=== PATIENT | male | born 1985 | race Caucasian/White ===

== ENCOUNTER 2024-08-04 05:55 | Emergency (ER) | payer MEDICAID, SELFPAY ==
--- NOTE | 2024-08-04 | ECG_ITS ---
Test Reason : diaphoretic/low hr Blood Pressure : / mmHG Vent. Rate : 047 BPM Atrial Rate : 047 BPM P-R Int : 148 ms QRS Dur : 100 ms QT Int : 400 ms P-R-T Axes : 015 066 062 degrees QTc Int : 354 ms Sinus bradycardia Otherwise normal ECG No previous ECGs available Referred By: Generic ED Physician Electronically Signed By:Tony Manning
--- NOTE | ~2024-08-04 | CT_ITS ---
EXAMINATION: CT HEAD WITHOUT CONTRAST CLINICAL INFORMATION: Seizure COMPARISON: None available. TECHNIQUE: Contiguous axial imaging was performed from the skull base to vertex without intravenous administration of contrast. This CT examination was performed using dose optimization techniques as appropriate, variously including the following: *Automated exposure control *Adjustment of mA and/or kV according to patient size (this includes techniques or standardized protocols for targeted exams where dose is matched to indication/reason for exam; i.e. extremities or head) *Use of iterative reconstruction technique DLP: 745 mGy-cm FINDINGS: No intra or extra-axial fluid collection or hemorrhage, mass or mass effect. Calvarium is intact. CT/CT head/brain wo IV con IMPRESSION: No acute intracranial pathology. Electronically signed by: Jcarlos Chau MD 08/04/2024 12:26 PM EDT
[2024-08-04 06:00] VITALS: BP 110/67; BP 112/76; PULSE 80; PULSE 90; RESP 29; TEMP 36.4; O2SAT 90; BMI 29.3
[2024-08-04 06:11] VITALS: BP 110/67; PULSE 85; RESP 24; TEMP 36.6; O2SAT 92
[2024-08-04 07:18] VITALS: BP 109/66; PULSE 54; RESP 21; O2SAT 96
--- NOTE | 2024-08-04 07:25 | PC.NURSE ---
Upon first contact with patient, pt woke up on his own to RN's presence. Pt has no recollection of events. Does report hx seizures and he has been off medications for over 6 months now. Pt calm, cooperative with care. Labs drawn/sent, VS updated.
[2024-08-04 07:39] LABS: MANUAL DIFF FLAG NO
[2024-08-04 07:42] LABS: Basophils Percent Auto 0.2 % (0-2); Eosinophils Percent Auto 0.2 % (0-4); Hematocrit 44.7 % (42.0-52.0); Hemoglobin 15.7 g/dl (14.0-18.0); Imm Gran Pct Auto 0.7 % (0.0-0.4); Lymphocytes Absolute Auto 1.3 X10*3/uL (1.2-4.9); Lymphocytes Percent Auto 9.4 % (20-40); Mean Corpuscular HGB Conc 35.1 g/dl (31.0-36.0); Mean Corpuscular Hemoglobin 30.6 pg (27.0-33.0); Mean Corpuscular Volume 87.1 fL (80.0-98.0); Mean Platelet Volume 11.1 fL (9.4-12.4); Monocytes Absolute Auto 0.7 X10*3/uL (0.1-1.2); Monocytes Percent Auto 5.4 % (2-11); Neutrophils Absolute Auto 11.4 x10*3/uL (2.0-8.3); Neutrophils Percent Auto 84.1 % (45-73); Platelet Count 201 X10*3/uL (160-400); Red Blood Count 5.13 X10*6/uL (4.60-5.80); Red Cell Distribution Width 12.5 % (11.0-16.0); White Blood Count 13.6 X10*3/uL (4.8-10.8)
--- NOTE | 2024-08-04 07:45 | ED_ITS ---
HPI - Seizure General Chief Complaint: Seizure Stated Complaint: ?seizure Time Seen by Provider: 08/04/24 07:32 Source: patient Mode of arrival: EMS History of Present Illness HPI Narrative: THIS IS A 38 YEARS OLD THE PATIENT WITH A HISTORY OF EPILEPSY NO COMPLIANT WITH HIS SEIZURE MEDICATION PRESENTED TO THE EMERGENCY DEPARTMENT AFTER A SEIZURE. HE STATES THAT HE HAS NOT TAKEN HIS SEIZURE MEDICATION FOR ABOUT 6 MONTHS HE TELLS ME THAT HE IS ON VALPROIC ACID ZONEGRAM. HE STATES THAT HE HE WAS WALKING HOME AND AT THE SEIZURE. complaint: seizure Onset (ago): hour(s) (2) Witnessed: No Trauma: No Seizure History: Yes Place: Outdoors Possible Precipitating Event: other (NONCOMPLIANCE WITH THE MEDICATION) Associated symptoms: denies other symptoms Treatments prior to arrival: none Related Data Previous Rx's ?Medication ?Instructions ?Recorded divalproex 500 mg tablet,delayed 500 mg PO BID #60 tabs 08/04/24 release (Depakote) zonisamide 100 mg capsule 100 mg PO BID #60 caps 08/04/24 (Zonegran) Allergies Allergy/AdvReac Type Severity Reaction Status Date / Time No Known Allergies Allergy Verified 08/04/24 06:12 Review of Systems 2 Eyes: Eyes: Reports no additional eye complaints Cardiovascular: Cardiovascular: Reports no additional cardiovascular complaints Gastrointestinal: Gastrointestinal: Reports no additional gastrointestinal complaints [facility] Past Medical History [facility] Narrative: EPILEPSY, HE DENIES ANY HISTORY OF ALCOHOL ABUSE HE DENIES ANY HISTORY OF DRUG ABUSE HE DOES USE CANNABINOIDS Social History Social History Smoked in Last 30 Days: Yes Substance Use Type: Marijuana Advance Directives: No Advance Directives Information Provided: Yes Do you have a plan to hurt others: No Plan Physical Exam 2 Vital Signs: Vital Signs: Last Vital Signs Temp 97.9 F 08/04/24 06:11 Pulse 57 08/04/24 09:27 Resp 16 08/04/24 09:27 BP 106/62 08/04/24 09:27 Pulse Ox 95 08/04/24 09:27 O2 Del Method Room Air 08/04/24 09:27 BMI result Body Mass Index 29.3 HE LOOKS WELL IS NOT TOXIC-APPEARING HE APPEARED COMFORTABLE IN THE STRETCHER Const: General: cooperative, comfortable and no acute distress O rientation/consciousness: patient oriented x3 HEENT: Other: HE HAS A SMALL ABRASION IN THE RIGHT SIDE OF THE TONGUE Head: Yes normal to inspection General nose exam: Normal external nose present Teeth and gingiva: dentition normal Neck: Neck: Yes normal visual inspection and Yes full ROM Chest: Chest palpation & inspection: normal inspection of the chest Resp: Effort & Inspection: normal respiratory effort Auscultation: clear to auscultation bilaterally Cardio: Jugular venous distension: no JVD Rate: regular rate Rhythm: r egular rhythm GI: Inspection: Yes normal to inspection Palpation (GI): Soft to palpation Skin: General skin exam: no rashes or lesions noted and elasticity normal L esions: no lesions Rashes: no rashes Neuro: General: patient oriented x3 Cranial nerves: Yes CN's II-XII intact bilaterally Course Reevaluation(s) Reevaluation #1: STABLE CLINICALLY,SEIZURE FREE Time: 10:59 Reevaluation #2: Patient remained stable he was observed in the emergency room for a 6 hour seizure free I refilled his medication I gave him the number of the neurology to follow-up with, patient is comfortable with the plan of care Time: 12:35 Medications Administered Discontinued Medications Generic Name Dose Route Start Last Admin Trade Name Freq PRN Reason Stop Dose Admin Sodium Chloride 1,000 mls @ 999 mls/hr 08/04/24 07:45 08/04/24 09:29 Ns IVCONT 08/04/24 08:45 Infused .Q1H1M IAN Infusion Valproic Acid 1,000 mg/ 60 mls @ 60 mls/hr 08/04/24 07:42 08/04/24 09:24 Dextrose IV 08/04/24 08:41 Infused ONCE ONE Infusion Lorazepam 1 mg 08/04/24 07:37 08/04/24 08:08 Lorazepam 1 Mg Tablet PO 08/04/24 07:38 1 mg ONCE ONE Administration Zonisamide 100 mg 08/04/24 07:43 08/04/24 09:49 Zonisamide 100 Mg Capsule PO 08/04/24 07:44 100 mg ONCE ONE Administration Medical Decision Making Medical Decision Making MDM Narrative: PATIENT PRESENTED AFTER GENERALIZED TONIC-CLONIC SEIZURE MOST LIKELY SECONDARY TO NONCOMPLIANCE. HE IS NOW AWAKE AND ALERT WE WILL CHECK BASELINE BLOOD WORK WE WILL LOAD HIM WITH THE VALPROIC ACID Differential Diagnosis Differential Diagnoses: The differential diagnosis associated with the presentation includes SEIZURE/SYNCOPE Lab Data [facility] Lab Attestation statement: I reviewed the patient's lab results. 08/04/24 07:22 08/04/24 07:22 Labs: Lab Results 08/04/24 08/04/24 Range/Units 07:22 10:44 WBC 13.6 H (4.8-10.8) X10*3/uL RBC 5.13 (4.60-5.80) X10*6/uL Hgb 15.7 (14.0-18.0) g/dl Hct 44.7 (42.0-52.0) % MCV 87.1 (80.0-98.0) fL MCH 30.6 (27.0-33.0) pg MCHC 35.1 (31.0-36.0) g/dl RDW 12.5 (11.0-16.0) % Plt Count 201 (160-400) X10*3/uL MPV 11.1 (9.4-12.4) fL Immature Gran % (Auto) 0.7 H (0.0-0.4) % Neut % (Auto) 84.1 H (45-73) % Lymph % (Auto) 9.4 L (20-40) % [place] % (Auto) 5.4 (2-11) % Eos % (Auto) 0.2 (0-4) % Baso % (Auto) 0.2 (0-2) % Lymph # (Auto) 1.3 (1.2-4.9) X10*3/uL [place] # (Auto) 0.7 (0.1-1.2) X10*3/uL Eos # (Auto) 0.0 (0.0-0.4) X10*3/uL Baso # (Auto) 0.0 (0.0-0.2) X10*3/uL Abs Immat Gran (auto) 0.10 H (0.00-0.03) X10*3/uL Absolute Neuts (auto) 11.4 H (2.0-8.3) x10*3/uL Absolute Nucleated RBC 0.000 (0.0-0.012) X10*3/uL Nucleated RBC % (auto) 0.0 (0.0-0.2) /100WBC Sodium 142 (135-145) mmol/L Potassium 4.1 (3.3-5.1) mmol/L Chloride 112 H (96-108) mmol/L Carbon Dioxide 22 (22-29) mmol/L Anion Gap 12 (12-20) BUN 11 (9-16) mg/dL Creatinine 1.02 (0.5-1.4) mg/dL Estim Creat Clear Calc 111.0 Estimated GFR > 60 Random Glucose 91 (60-115) mg/dL Calcium 9.5 (8.4-10.2) mg/dL Total Bilirubin 0.3 (0.0-1.0) mg/dL AST 26 (5-37) U/L ALT 33 (0-40) U/L Alkaline Phosphatase 70 (39-117) U/L Troponin I High Sens 6.8 (<3.5-35.0) ng/L Total Protein 6.8 (6.5-8.0) g/dL Albumin 4.2 (3.5-5.0) g/dL Urine Opiates Screen Not Detected (Not Detect) Ur Buprenorphine Scrn Not Detected (Not Detect) ng/mL Ur Oxycodone Screen Not Detected (Not Detect) ng/mL Urine Methadone Screen Not Detected (Not Detect) ng/mL Urine Fentanyl Screen Not Detected (Not Detect) Ur Barbiturates Screen Not Detected (Not Detect) Ur Phencyclidine Scrn Not Detected (Not Detect) Ur Amphetamines Screen Not Detected (Not Detect) U Benzodiazepines Scrn Not Detected (Not Detect) Urine Cocaine Screen Not Detected (Not Detect) U Marijuana (THC) Screen POSITIVE H (Not Detect) Independent Interpretation I performed an independent interpretation of an: EKG and CT Scan Interpretation: NORMAL SINUS RHYTHM RATE [address]-T CHANGES NO ISCHEMIA Discharge Plan Discharge Clinical Impression: Epileptic seizure Patient Disposition: Home, Self-Care Instructions: Epilepsy (DC) Additional Instructions: DO NOT DRIVE OR OPERATE MACHINE FOR ABOUT 6 MONTHS Prescriptions: New divalproex [Depakote] 500 mg tablet,delayed release (DR/EC) 500 mg PO BID Qty: 60 0RF zonisamide [Zonegran] 100 mg capsule 100 mg PO BID Qty: 60 0RF Referrals: Ivan Sierra MD [Physician] - 08/10/24 Print Language: Nepali
[2024-08-04 07:59] LABS: Alanine Aminotransferase 33 U/L (0-40); Albumin Level 4.2 g/dL (3.5-5.0); Alkaline Phosphatase 70 U/L (39-117); Anion Gap 12 (12-20); Aspartate Amino Transferase 26 U/L (5-37); Bilirubin Total 0.3 mg/dL (0.0-1.0); Blood Urea Nitrogen 11 mg/dL (9-16); Calcium 9.5 mg/dL (8.4-10.2); Carbon Dioxide 22 mmol/L (22-29); Chloride 112 mmol/L (96-108); Estimated Glomerular Filt Rate > 60; Glucose Random 91 mg/dL (60-115); Potassium 4.1 mmol/L (3.3-5.1); Sodium 142 mmol/L (135-145); Total Protein 6.8 g/dL (6.5-8.0)
[2024-08-04 08:00] LABS: Troponin-I High Sensitivity 6.8 ng/L (<3.5-35.0)
[2024-08-04 08:08] VITALS: BP 105/64; PULSE 56; RESP 22; O2SAT 97
[2024-08-04] MEDS: LORazepam 1 MG TABLET PO (08:08)
[2024-08-04] MEDS: 0.9 % Sodium Chloride 1,000 ML 999 ML IVCONT (08:09)
[2024-08-04] MEDS: Valproic Acid (as Sodium Salt) 1,000 MG in Dextrose 5 % 50 ML 60 MG IV (08:24)
--- NOTE | 2024-08-04 08:31 | PC.NURSE ---
MD Betts made aware of pt's bradycardia - 40's-50's with 42 the lowest. Pt unsure if this is normal for him.
[2024-08-04 09:27] VITALS: BP 106/62; PULSE 57; RESP 16; O2SAT 95
--- NOTE | 2024-08-04 09:29 | PC.NURSE ---
Pharmacy called again to check on status of zonegran, stated they would bring it down.
[2024-08-04] MEDS: Zonisamide 100 MG CAPSULE PO (09:49)
--- NOTE | 2024-08-04 10:52 | PC.NURSE ---
Urine obtained/sent. Awaiting CT Scan.
[2024-08-04 11:22] LABS: Amphetamine Screen Urine Not Detected (Not Detect); Barbiturates, Urine Not Detected (Not Detect); Benzodiazepines Screen Urine Not Detected (Not Detect); Buprenorphine Scr Not Detected (Not Detect); Cannabinoid Screen Urine POSITIVE (Not Detect); Cocaine Screen Urine Not Detected (Not Detect); Fentanyl, urine Not Detected (Not Detect); Methadone Screen, Urine Not Detected (Not Detect); Opiate Screen Urine Not Detected (Not Detect); Oxycodone Screen Urine Not Detected (Not Detect); Phencyclidine Screen Urine Not Detected (Not Detect)
[2024-08-04 12:44] VITALS: BP 110/79; PULSE 73; RESP 20; TEMP 37.1; O2SAT 97
== END 2024-08-04 12:48 | disposition home or self-care (01) ==
PROVIDERS: Emergency Provider Emergency Medicine
DX: R56.9 Unspecified convulsions (principal); R00.1 Bradycardia, unspecified; F12.90 Cannabis use, unspecified, uncomplicated; Z91.148 Patient's other noncompliance with medication regimen for other reason; Z79.899 Other long term (current) drug therapy
CPT/HCPCS: 36415; 70450; 80053; 80307; 84484; 85025; 93005; 96361; 96374; 99284; 99285

== ENCOUNTER → 2024-08-04 06:56 | Outpatient (BNV) | payer MEDICAID, SELFPAY | PROVIDERS: Emergency Provider Emergency Medicine; Visit Provider Internal Medicine Cardiovascular Disease | DX: R00.1 Bradycardia, unspecified (principal) | CPT/HCPCS: 93010 ==

== ENCOUNTER 2024-10-22 13:48 | Emergency (ER) | payer MEDICAID, SELFPAY ==
--- NOTE | ~2024-10-22 | CT_ITS ---
CLINICAL HISTORY: fall, head strike, seizure CT maxillofacial without contrast Comparison: None Findings: No acute fracture or dislocation. Remote fracture of the right lamina papyracea. Large cavity and periapical cyst at tooth 18 (lower left) and periapical cyst at tooth 7 (upper right). No acute orbital or intracranial findings. Clear paranasal sinuses and mastoid air cells. Upper lip soft tissue swelling. Impression: No acute fracture. This document has been electronically signed by: Qiana Root MD on 10/22/2024 18:52:21
--- NOTE | ~2024-10-22 | CT_ITS ---
CLINICAL HISTORY: fall, head strike, seizure CT head without contrast Comparison: None Findings: No acute hemorrhage. No extra-axial fluid collection. No hydrocephalus, mass-effect or herniation. Decreased attenuation in the occipital lobes, [id number]-[id number]-left, favored to be secondary to artifact. Interiano-white differentiation is otherwise maintained. White matter is within normal limits for age. No acute orbital pathology. No acute soft tissue abnormality. No acute fracture. The visualized paranasal sinuses are predominantly clear. The mastoid air cells are clear. Impression: No acute posttraumatic findings. This document has been electronically signed by: Qiana Root MD on 10/22/2024 18:45:52
--- NOTE | ~2024-10-22 | CT_ITS ---
CLINICAL HISTORY: fall, head strike, seizure CT cervical spine without contrast Comparison: None Findings: Normal alignment. No fracture. No severe central spinal canal stenosis. No epidural hematoma. Normal thickness of the prevertebral soft tissues. The lung apices are clear. Impression: No acute findings. This document has been electronically signed by: Qiana Root MD on 10/22/2024 18:49:43
--- NOTE | ~2024-10-22 | XR_ITS ---
CLINICAL HISTORY: weakness Chest Radiographs, AP Comparison: None Findings: No cardiomegaly. Normal mediastinal contours. No pneumothorax. No opacity. No pleural effusion. Normal upper abdomen. No acute fracture. Impression: No acute findings. This document has been electronically signed by: Qiana Root MD on 10/22/2024 18:53:17
--- NOTE | 2024-10-22 14:15 | ED_ITS ---
HPI - General Adult General Chief complaint: Seizure Stated complaint: SZ W/FALL,HIT FACE PER EMS Time Seen by Provider: 10/22/24 14:15 Source: patient and EMS Mode of arrival: EMS Limitations: no limitations History of Present Illness ED Provider: Ifrah Garcia PA-C HPI narrative: Patient is a 38 year old assigned male at with a history of seizures - supposed to be on Depakote and Zonegran but is not and has not been, presenting to the emergency department today after a seizure. Patient states that his witnessed him seize for 3 minutes including him falling and having a head strike. Patient denies any dizziness, lightheadedness, abdominal pain, nausea, vomiting, fever, chills, blurry vision, double vision, loss of vision, chest pain, difficulty breathing, shortness of breath, back pain, night sweats, pain with urination, increased urinary frequency, increased urinary urgency, blood in his urine or stool, syncope or a near syncopal episode, bowel incontinence, bladder incontinence, or any other complaints at this time. Relieving factors: none Exacerbating factors: none Associated symptoms: seizure Treatments prior to arrival: none Related Data Previous Rx's ?Medication ?Instructions ?Recorded divalproex 500 mg tablet,delayed 500 mg PO BID #60 tabs 08/04/24 release (Depakote) zonisamide 100 mg capsule 100 mg PO BID #60 caps 08/04/24 (Zonegran) levetiracetam 500 mg tablet 500 mg PO BID #60 tabs 10/22/24 (Keppra) Allergies Allergy/AdvReac Type Severity Reaction Status Date / Time No Known Allergies Allergy Verified 10/22/24 14:55 Review of Systems 2 Constitutional: Constitutional: Reports no additional constitutional complaints, Denies chills, Denies fever(s) and Denies night sweats Eyes: Eyes: Reports no additional eye complaints, Denies blurry vision, Denies change in vision, Denies diplopia, Denies eye discharge, Denies loss of vision and Denies eye pain Comments: burising to right eyebrow ENT: Denies dizziness Comments: abrasion under nose Cardiovascular: Cardiovascular: Reports no additional cardiovascular complaints, Denies chest pain, Denies lightheadedness, Denies Loss of Consciousness and Denies dyspnea Respiratory: Respiratory: Reports no additional respiratory complaints and Denies dyspnea Gastrointestinal: Gastrointestinal: Reports no additional gastrointestinal complaints, Denies abdominal pain, Denies melena, Denies hematochezia, Denies change in bowel habits and Denies change in stool character Genitourinary: Genitourinary: Reports no additional male genitourinary complaints, Denies hematuria, Denies oliguria, Denies difficulty urinating, Denies dysuria, Denies urinary frequency, Denies urinary hesitancy, Denies urinary incontinence and Denies urinary urgency Musculoskeletal: Musculoskeletal: Reports no additional musculoskeletal complaints, Denies numbness and Denies tingling Neurologic: Denies dizziness, Denies loss of vision, Denies numbness, Reports convulsions, Reports seizure-like activity and Denies tingling Psychiatric: Psychiatric: Reports no additional psychiatric complaints Endocrine: Endocrine: Reports no additional endocrine complaints Hematologic/Lymphatic: Hematologic/Lymphatic: Reports no additional hematologic/lymphatic complaints Allergic/Immunologic: Allergic/Immunologic: Reports no additional allergic/immunologic complaints PMFSH Past Medical History Attestation statement: The following information was validated with the patient. Source: old records reviewed and nursing notes reviewed Social History Social History Substance Use Type: Marijuana Advance Directives: No Advance Directives Information Provided: Yes Do you have a plan to hurt others: No Plan Physical Exam ED Vital Signs: Vital Signs - 24 hr 10/22/24 14:54 10/22/24 17:49 10/22/24 19:20 Temperature 98.1 F 98.2 F 98.5 F Pulse Rate 50 60 70 Respiratory Rate 16 18 15 Blood Pressure 122/74 114/70 117/69 Pulse Oximetry 97 98 96 Oxygen Delivery Method Room Air Room Air Room Air 10/22/24 19:52 Temperature 98.5 F Pulse Rate 70 Respiratory Rate 15 Blood Pressure 117/69 Pulse Oximetry 96 Oxygen Delivery Method Room Air BMI result Body Mass Index 30.0 Const General: cooperative, no acute distress, alert and awake Nutritional Appearance: well nourished Orientation/consciousness: patient oriented x3 Limitations: no limitations HENMT Ears: hearing grossly normal bilaterally and external ears normal General nose exam: no nasal discharge noted and no epistaxis Nose image: 2 1. abrasion - no open areas or active bleeding Face and sinus: No abrasion, No laceration and Yes other (bruising present above the right eye brow) Mouth: Normal oral and palatal mucosa present, no drooling and no muffled voice Eyes General: appearance normal, both eyes and all related structures Periorbital: periorbital findings normal Eyelids: Yes eyelids normal Conjunctivae: conjunctivae normal Pupils: Equal, round and reactive pupils present EOM: EOMs intact bilaterally Neck Neck: Yes normal visual inspection, Yes full ROM and Yes no lymphadenopathy Chest Chest palpation & inspection: normal inspection of the chest Resp Effort & Inspection: normal respiratory effort and able to speak in complete sentences GI Inspection: Yes normal to inspection Neuro General: patient oriented x3 and moves all extremities Cranial nerves: Yes Equal, round and reactive pupils present Cognition (Neuro): normal cognition Extrem General: Yes normal to inspection, Yes full ROM and Yes capillary refill normal Psych Appearance: grossly normal Mental Status: mental status grossly normal Affect: normal affect Attitude: cooperative Thought process: Normal thought process present Thought content: Normal thought content present Insight: Good insight present (Psych) Medications Administered Discontinued Medications Generic Name Dose Route Start Last Admin Trade Name Freq PRN Reason Stop Dose Admin Levetiracetam 1,000 mg in 100 mls @ 400 mls/hr 10/22/24 14:29 10/22/24 14:52 Keppra IV 10/22/24 14:43 400 mls/hr ONCE ONE Administration Medical Decision Making Medical Decision Making [facility] Narrative: Patient is a 38 year old assigned male at with a history of seizures - supposed to be on Depakote and Zonegran but is not and has not been, presenting to the emergency department today after a seizure. Patient's physical exam was as noted in the physical exam portion of this note. Patient's blood work was unremarkable. Patient's EKG was unremarkable. Patient's chest x-ray showed no acute process. Patient's CT head, c-spine, and face were negative. Given the patient has non compliant for quite some time and Depakote requires LFT monitoring on an outpatient basis - will start the patient on Keppra for seizure prophylaxis. I explained my physical exam findings as well as all test results to the patient. I answered all questions asked by the patient. Patient was given 1g of Keppra and did not seize while in the department. I stressed the importance of the patient taking his medication as directed (either prescribed or as the over the counter packaging recommends). I stressed the importance of the patient following up with his primary care provider and a neurologist. I stressed the importance of the patient returning to the emergency department immediately if his symptoms were to worsen or if he were to develop any dizziness, shortness of breath, difficulty breathing, chest pain, blurry vision, loss of vision, nausea, vomiting, abdominal pain, fever, chills, back pain, or any other complaints. Patient verbalized agreement and understanding with this treatment plan and discharge. Differential Diagnosis Differential Diagnoses: The differential diagnosis associated with the presentation includes Medication non-compliance Epilepsy Admission/Observation Consideration of admission/observation: Escalation of care including admission/observation considered Patient would have been admitted to the hospital had his work up had any findings where hospital admission was appropriate and his clinical presentation warranted hospital admission. Lab Data [facility] Lab Attestation statement: I reviewed the patient's lab results. My interpretation of these results are in the [facility] Rationale portion of this note. 10/22/24 14:49 10/22/24 14:48 Labs: Lab Results 10/22/24 10/22/24 10/22/24 Range/Units 14:48 14:49 16:48 WBC 10.0 (4.8-10.8) X10*3/uL RBC 5.32 (4.60-5.80) X10*6/uL Hgb 15.8 (14.0-18.0) g/dl Hct 45.8 (42.0-52.0) % MCV 86.1 (80.0-98.0) fL MCH 29.7 (27.0-33.0) pg MCHC 34.5 (31.0-36.0) g/dl RDW 12.8 (11.0-16.0) % Plt Count 213 (160-400) X10*3/uL MPV 10.9 (9.4-12.4) fL Immature Gran % (Auto) 0.5 H (0.0-0.4) % Neut % (Auto) 76.3 H (45-73) % Lymph % (Auto) 16.3 L (20-40) % [place]ell % (Auto) 6.2 (2-11) % Eos % (Auto) 0.4 (0-4) % Baso % (Auto) 0.3 (0-2) % Lymph # (Auto) 1.6 (1.2-4.9) X10*3/uL [place]ell # (Auto) 0.6 (0.1-1.2) X10*3/uL Eos # (Auto) 0.0 (0.0-0.4) X10*3/uL Baso # (Auto) 0.0 (0.0-0.2) X10*3/uL Abs Immat Gran (auto) 0.05 H (0.00-0.03) X10*3/uL Absolute Neuts (auto) 7.7 (2.0-8.3) x10*3/uL Absolute Nucleated RBC 0.000 (0.0-0.012) X10*3/uL Nucleated RBC % (auto) 0.0 (0.0-0.2) /100WBC Sodium 141 (135-145) mmol/L Potassium 4.5 (3.3-5.1) mmol/L Chloride 109 H (96-108) mmol/L Carbon Dioxide 26 (22-29) mmol/L Anion Gap 11 L (12-20) BUN 13 (9-16) mg/dL Creatinine 0.90 (0.5-1.4) mg/dL Estim Creat Clear Calc 127.2 Estimated GFR > 60 Random Glucose 113 (60-115) mg/dL Lactic Acid 0.8 (0.5-2.0) mmol/L Calcium 10.2 D (8.4-10.2) mg/dL Magnesium 2.4 (1.6-2.6) mg/dL Total Bilirubin 0.6 (0.0-1.0) mg/dL AST 23 (5-37) U/L ALT 31 (0-40) U/L Alkaline Phosphatase 67 (39-117) U/L Total Creatine Kinase 204 H (38-174) U/L Total Protein 7.2 (6.5-8.0) g/dL Albumin 4.4 (3.5-5.0) g/dL Influenza Type A (PCR) NEGATIVE (Negative) Influenza Type B (PCR) NEGATIVE (Negative) RSV RNA Qual (PCR) NEGATIVE (Negative) SARS-CoV-2 RNA (RT-PCR) NEGATIVE (Negative) Independent Interpretation I performed an independent interpretation of an: EKG, Plain X-Ray and CT Scan Interpretation: My interpretation is in agreement with the radiologist's impression of these imaging studies. L Report Number: [id number]: Total DLP = 0.00 mGy-cm CLINICAL HISTORY: fall, head strike, seizure CT head without contrast Comparison: None Findings: No acute hemorrhage. No extra-axial fluid collection. No hydrocephalus, mass- effect or herniation. Decreased attenuation in the occipital lobes, [id number]-left, favored to be secondary to artifact. Interiano-white differentiation is otherwise maintained. White matter is within normal limits for age. No acute orbital pathology. No acute soft tissue abnormality. No acute fracture. The visualized paranasal sinuses are predominantly clear. The mastoid air cells are clear. Impression: No acute posttraumatic findings. This document has been electronically signed by: Qiana Root MD on 10/22/2024 18:45:52 Dictated By: Qiana Anthony MD Signed By: Electronically signed by Qiana Anthony MD 10/22/24 1847 Report Number: [id number]: Total DLP = 1497.00 mGy-cm CLINICAL HISTORY: fall, head strike, seizure CT cervical spine without contrast Comparison: None Findings: Normal alignment. No fracture. No severe central spinal canal stenosis. No epidural hematoma. Normal thickness of the prevertebral soft tissues. The lung apices are clear. Impression: No acute findings. This document has been electronically signed by: Qiana Root MD on 10/22/2024 18:49:43 Dictated By: Qiana Anthony MD Signed By: Electronically signed by Qiana Anthony MD 10/22/24 1851 Report Number: [id number]: Total DLP = 0.00 mGy-cm CLINICAL HISTORY: fall, head strike, seizure CT maxillofacial without contrast Comparison: None Findings: No acute fracture or dislocation. Remote fracture of the right lamina papyracea. Large cavity and periapical cyst at tooth 18 (lower left) and periapical cyst at tooth 7 (upper right). No acute orbital or intracranial findings. Clear paranasal sinuses and mastoid air cells. Upper lip soft tissue swelling. Impression: No acute fracture. This document has been electronically signed by: Qiana Root MD on 10/22/2024 18:52:21 Dictated By: Qiana Anthony MD Signed By: Electronically signed by Qiana Anthony MD 10/22/241852 CLINICAL HISTORY: weakness Chest Radiographs, AP Comparison: None Findings: No cardiomegaly. Normal mediastinal contours. No pneumothorax. No opacity. No pleural effusion. Normal upper abdomen. No acute fracture. Impression: No acute findings. This document has been electronically signed by: Qiana Root MD on 10/22/2024 18:53:17 Dictated By: Qiana Anthony MD Signed By: Electronically signed by Qiana Anthony MD 10/22/241853 Vent. Rate: 64 BPM Atrial Rate: 64 BPM P-R Int: 166 ms QRS Dur: 96 ms QT Int: 368 ms P-R-T Axes: 39 68 55 degrees QTcB Int: 379 ms Normal sinus rhythm with sinus arrhythmia Normal ECG When compared with ECG of 04-Aug-2024 06:56, No significant change was found Electronically Signed By: RICKY DOBSON Dictated By: Ricky Dobson MD Signed By: Electronically signed by Ricky Dobson MD 10/22/24 [id number] Radiology Impression Discussion of test interpretation with radiology: I have reviewed the radiologist's reading. Independent Historian Clinical information obtained from an independent historian. History obtained from or confirmed by: EMS (EMS provided additional history and confirmed the history provided by the patient.) Critical Care Time Critical Care Time Critical Care Time: Yes Total Critical Care Time: 34 Attestation: I spent 34 minutes of Critical Care Time with this patient. This does not include time spent on separately reported billable procedures. Discharge Plan Discharge Clinical Impression: Seizure, Fall, Abrasion Patient Disposition: Home, Self-Care Instructions: Recurrent Seizures in Adults (ED), Fall Prevention (ED) Additional Instructions: Follow up with your primary care provider and a neurologist. Return to the emergency department immediately if your symptoms worsen or if you develop any dizziness, shortness of breath, difficulty breathing, chest pain, blurry vision, loss of vision, nausea, vomiting, abdominal pain, fever, chills, back pain, or any other complaints. Prescriptions: New levetiracetam [Keppra] 500 mg tablet 500 mg PO BID Qty: 60 0RF No Action divalproex [Depakote] 500 mg tablet,delayed release (DR/EC) 500 mg PO BID Qty: 60 0RF zonisamide [Zonegran] 100 mg capsule 100 mg PO BID Qty: 60 0RF Referrals: [facility] Family Medicine [Provider Group] (Call to establish and follow up with a primary care provider. If you already have a primary care provider, please follow up with them.) [facility] Primary Care, Reji [Provider Group] (Call to establish and follow up with a primary care provider. If you already have a primary care provider, please follow up with them.) [facility] Primary Care,Abhijit [Provider Group] (Call to establish and follow up with a primary care provider. If you already have a primary care provider, please follow up with them.) [facility] Neuro/Sleep [Provider Group] (Call to establish and follow up with a neurologist.) Stand Alone Forms: Work/School Release Interventions: ED Discharge Assessment Last Done: 10/22/24 19:52 Discharge Date/Time: 10/22/24 19:58 Print Language: Romanian
[2024-10-22 14:20] VITALS: BP 116/68; PULSE 88; O2SAT 98
--- NOTE | 2024-10-22 14:25 | ECG_ITS ---
Test Reason : SEIZURE Blood Pressure : */* mmHG Vent. Rate : 64 BPM Atrial Rate : 64 BPM P-R Int : 166 ms QRS Dur : 96 ms QT Int : 368 ms P-R-T Axes : 39 68 55 degrees QTcB Int : 379 ms Normal sinus rhythm with sinus arrhythmia Normal ECG When compared with ECG of 04-Aug-2024 06:56, No significant change was found Referred By: Ifrah Garcia Electronically Signed By: NAGA DOBSON
[2024-10-22] MEDS: levETIRAcetam in NaCl (iso-os) 1,000 MG/100 ML PIGGYBACK 400 MG IV (14:52)
[2024-10-22 14:54] VITALS: BP 122/74; PULSE 50; RESP 16; TEMP 36.7; O2SAT 97
[2024-10-22 14:54] LABS: MANUAL DIFF FLAG NO
[2024-10-22 14:59] LABS: Basophils Percent Auto 0.3 % (0-2); Eosinophils Percent Auto 0.4 % (0-4); Hematocrit 45.8 % (42.0-52.0); Hemoglobin 15.8 g/dl (14.0-18.0); Imm Gran Abs Auto 0.05 X10*3/uL (0.00-0.03); Imm Gran Pct Auto 0.5 % (0.0-0.4); Lymphocytes Absolute Auto 1.6 X10*3/uL (1.2-4.9); Lymphocytes Percent Auto 16.3 % (20-40); Mean Corpuscular HGB Conc 34.5 g/dl (31.0-36.0); Mean Corpuscular Hemoglobin 29.7 pg (27.0-33.0); Mean Corpuscular Volume 86.1 fL (80.0-98.0); Mean Platelet Volume 10.9 fL (9.4-12.4); Monocytes Absolute Auto 0.6 X10*3/uL (0.1-1.2); Monocytes Percent Auto 6.2 % (2-11); Neutrophils Absolute Auto 7.7 x10*3/uL (2.0-8.3); Neutrophils Percent Auto 76.3 % (45-73); Platelet Count 213 X10*3/uL (160-400); Red Blood Count 5.32 X10*6/uL (4.60-5.80); Red Cell Distribution Width 12.8 % (11.0-16.0)
[2024-10-22 15:29] LABS: Alanine Aminotransferase 31 U/L (0-40); Albumin Level 4.4 g/dL (3.5-5.0); Anion Gap 11 (12-20); Aspartate Amino Transferase 23 U/L (5-37); Bilirubin Total 0.6 mg/dL (0.0-1.0); Blood Urea Nitrogen 13 mg/dL (9-16); Calcium 10.2 mg/dL (8.4-10.2); Carbon Dioxide 26 mmol/L (22-29); Chloride 109 mmol/L (96-108); Creatinine Clr Calc Pharmacy 127.2; Estimated Glomerular Filt Rate > 60; Glucose Random 113 mg/dL (60-115); Magnesium 2.4 mg/dL (1.6-2.6); Potassium 4.5 mmol/L (3.3-5.1); Sodium 141 mmol/L (135-145); Total Protein 7.2 g/dL (6.5-8.0)
[2024-10-22 15:38] LABS: Influenza A PCR NEGATIVE (Negative); Influenza B PCR NEGATIVE (Negative); Resp Syncy Virus RNA Qual PCR NEGATIVE (Negative); SARS COV2 PCR INHOUSE NEGATIVE (Negative)
[2024-10-22 15:53] LABS: Alkaline Phosphatase 67 U/L (39-117)
[2024-10-22 17:10] LABS: Lactic Acid 0.8 mmol/L (0.5-2.0)
[2024-10-22 17:49] VITALS: BP 114/70; PULSE 60; RESP 18; TEMP 36.8; O2SAT 98
[2024-10-22 19:20] VITALS: BP 117/69; PULSE 70; RESP 15; TEMP 36.9; O2SAT 96
--- NOTE | 2024-10-22 19:24 | MHC.EDTECH ---
This pct assumed care of Patient at 1900 ,vitals taken ,Patient waiting for discharge Paper work .
[2024-10-22 19:52] VITALS: BP 117/69; PULSE 70; RESP 15; TEMP 36.9; O2SAT 96
== END 2024-10-22 19:58 | disposition home or self-care (01) ==
PROVIDERS: Physician Assistant Medical; Emergency Provider Emergency Medicine
DX: R56.9 Unspecified convulsions (principal); S00.511A Abrasion of lip, initial encounter; S00.11XA Contusion of right eyelid and periocular area, initial encounter; W18.39XA Other fall on same level, initial encounter; Y93.9 Activity, unspecified; Y92.9 Unspecified place or not applicable; Y99.9 Unspecified external cause status; Z91.148 Patient's other noncompliance with medication regimen for other reason; Z03.818 Encounter for observation for suspected exposure to other biological agents ruled out
CPT/HCPCS: 0241U; 70450; 70486; 71045; 72125; 80053; 82550; 83605; 83735; 85025; 93005; 96374; 99284; 99285; J1953

== ENCOUNTER → 2024-10-22 14:25 | Outpatient (BNV) | payer MEDICAID, SELFPAY | PROVIDERS: Emergency Provider Emergency Medicine; Visit Provider Radiology Diagnostic Radiology | DX: R56.9 Unspecified convulsions (principal); R53.1 Weakness | CPT/HCPCS: 70450; 70486; 71045; 72125 ==

== ENCOUNTER → 2024-10-22 14:25 | Outpatient (BNV) | payer MEDICAID, SELFPAY | PROVIDERS: Emergency Provider Emergency Medicine; Visit Provider Internal Medicine | DX: R56.9 Unspecified convulsions (principal) | CPT/HCPCS: 93010 ==